=== PATIENT | male | born 1980 | race American Indian/Alaskan Native ===

== ENCOUNTER 2020-06-06 08:46 | Day surgery (SDC) | payer BC ==
[2020-06-06] MEDS ORDERED: LIDOCAINE (1%) 10 MG/1 ML VIAL 20 ML MDV ONE (12:23)
[2020-06-06 14:36] VITALS: BP 148/96
--- NOTE | 2020-06-06 15:37 | Ultrasound Report ---
ULTRASOUND-GUIDED LEFT THYROID FINE-NEEDLE ASPIRATION INDICATION: Left thyroid mass COMPARISON: Recent outside ultrasound CONSENT: Procedure was discussed at length with the patient and he understands and gives consent. Pos sible risks and benefits were discussed including risk of bleeding. Opportunity for questions was giv en. Patient is not on anticoagulant therapy and has no pertinent allergies. PROCEDURE: Timeout was performed. The left thyroid mass seen on recent outside study was localized so nographically. Site was prepared in an aseptic standard fashion. Under direct sonographic guidance, u sing local anesthesia with 1% lidocaine, a series of 5 FNA samples was obtained of the left thyroid m ass using capillary technique with 25-gauge needles. Specimens were prepared by the ultrasound techno logist on site. Imaging after the procedure showed no evidence of hematoma. Site was secured. Patient tolerated the procedure well. Specimens were sent to the pathology department while the patient wait ed. I received a call from Dr. Blankenship that the specimens were adequate for evaluation. Patient was th en discharged in good condition to home with instructions. IMPRESSION: Successful ultrasound-guided left thyroid fine-needle aspiration Signer Name: Agusto Du MD Signed: 06/06/2020 3:33 PM Workstation Name: [id number]
== END 2020-06-06 08:47 | disposition home or self-care (01) ==
LOC: CATHLABREC 08:46 → EDSTATUS 09:00
PROVIDERS: ATTEND Internal Medicine
DX: E07.89 Other specified disorders of thyroid (principal); E04.1 Nontoxic single thyroid nodule; I10 Essential (primary) hypertension; Z87.442 Personal history of urinary calculi; Z79.899 Other long term (current) drug therapy
CPT/HCPCS: 10005; 60100; 76942; 88112; 88172; 88173